=== PATIENT | female | born 1975 | race Caucasian/White ===

== ENCOUNTER 2021-06-27 12:13 | Emergency (ER) | payer OTHER, SELFPAY ==
[2021-06-27 12:23] VITALS: BP 147/103; PULSE 74; RESP 18; TEMP 36.9; O2SAT 100
--- NOTE | 2021-06-27 12:36 | ED.URI ---
HPI - URI/Sore Throat General Chief Complaint: Upper Respiratory Infection Stated Complaint: cough Time Seen by Provider: 06/27/21 12:36 Source: patient and RN notes reviewed Mode of arrival: ambulatory Limitations: no limitations History of Present Illness HPI Narrative: 44-year-old female with history of Graves' disease presents with concern for 1 week history of sinus congestion, pressure, pain, postnasal drainage, cough, headache. She reports history of chronic sinus problems for which she is seeing specialist. She reports she has been using DayQuil with little relief. She denies fever, body aches, chills, sweats. Has not been vaccinated for Covid, had a negative Covid test last week. MD elicited complaint: cough Related Data Home Medications Medication Instructions Recorded Confirmed methimazole 5 mg PO BID 06/27/21 06/27/21 propranolol 60 mg PO DAILY 06/27/21 06/27/21 Allergies Allergy/AdvReac Type Severity Reaction Status Date / Time No Known Allergies Allergy Verified 06/27/21 12:36 Review of Systems Review of Systems: CONSTITUTIONAL: Reports malaise. Denies chills, sweats, or fever. EYES: Denies visual changes, redness, or discharge. ENT: Reports rhinorrhea, congestion, sinus pain. Denies otalgia and sore throat. CARDIOVASCULAR: Denies chest pain, palpitations, or edema. RESPIRATORY: Reports cough. Denies dyspnea. GASTROINTESTINAL: Denies abdominal pain, nausea, vomiting, diarrhea SKIN: Denies rash or itching. MUSCULOSKELETAL: Denies myalgia. NEUROLOGIC: Reports headache. All systems reviewed & are unremarkable except as noted in HPI and below PMFSH Comments At time of signature, agree with nursing past medical, surgical, social and family history. There is no relevant family history pertinent to the presenting complaint Exam Narrative: GENERAL: Well-appearing, well-nourished, and in no acute distress. HEAD: Normocephalic EYES: PERRLA, conjunctivae clear ENT: Nares clear, turbinates mildly erythematous. Mucous membranes moist. TM pearly alfred with sharp light reflex bilaterally; no tragal tenderness. Oropharynx not erythematous without lesions. Tonsils not enlarged and without exudate, no drooling, no hoarseness, no trismus, uvula midline. NECK: Supple. No lymphadenopathy CHEST: Clear to auscultation, breath sounds equal. No wheezing, rhonchi, rales, or stridor. No respiratory distress, speaks in full sentences. HEART: Regular rate and rhythm. No murmur heard. SKIN: Warm, dry, no rash. NEURO: Alert and oriented x3. PSYCH: Normal mood and affect Course Course Emergency Course: Patient is aware of diagnosis, understands and agrees to treatment plan. Anticipatory guidance given. Patient agrees to follow-up as directed and is aware of reasons to seek care at the emergency department. Portions of this record may have been created with voice recognition software Vital Signs Vital signs: Vital Signs Temperature 98.4 F 06/27/21 12:23 Pulse Rate 74 06/27/21 12:23 Respiratory Rate 18 06/27/21 12:23 Blood Pressure 147/103 H 06/27/21 12:23 Pulse Oximetry 100 06/27/21 12:23 Temperature 98.4 F 06/27/21 12:23 Pulse Rate 74 06/27/21 12:23 Respiratory Rate 18 06/27/21 12:23 Blood Pressure 147/103 H 06/27/21 12:23 Pulse Oximetry 100 06/27/21 12:23 Reviewed. Patient has been instructed to follow up with her primary care provider within the next week regarding her elevated blood pressure today. MDM - URI/Sore Throat MDM Narrative Medical decision making narrative: Differential diagnosis considered: Martines virus, strep pharyngitis, allergic rhinitis, upper respiratory tract infection, sinusitis, rhinosinusitis, nasopharyngitis. viral pharyngitis, otitis media, otitis externa, pneumonia, bronchitis, viral cough syndrome, viral syndrome, and influenza. Exam findings show no acute concerns or changes; patient is non-toxic appearing and is in no distress. Patient is appropriate for outpa
== END 2021-06-27 12:50 | disposition home or self-care (01) ==
PROVIDERS: Emergency Provider Nurse Practitioner
DX: J01.90 Acute sinusitis, unspecified (principal); E05.00 Thyrotoxicosis with diffuse goiter without thyrotoxic crisis or storm
CPT/HCPCS: 99213; G0463

== ENCOUNTER 2021-08-31 15:40 | Emergency (ER) | payer OTHER, SELFPAY ==
[2021-08-31 15:46] VITALS: BP 174/91; PULSE 68; RESP 18; TEMP 36.9; O2SAT 100
--- NOTE | 2021-08-31 15:53 | ED.GENADULT ---
HPI - General Adult General Chief complaint: Back Pain/Injury Stated complaint: back pain Time Seen by Provider: 08/31/21 15:53 Source: patient Mode of arrival: ambulatory Limitations: no limitations History of Present Illness HPI narrative: 45-year-old female patient presents to the [facility] with complaints of lower back pain to the left side for the past 2 to 3 days. Patient states she does not remember any specific injury to her back but states that it does hurt with movement specifically when twisting to the left. Patient states she has been cleaning for the upcoming holiday. Patient states she did take 2 extra strength Tylenol one time today but did not help with the pain. Denies using any type of heat or any anti-inflammatories for the pain. Related Data Home Medications Medication Instructions Recorded Confirmed methimazole 5 mg PO BID 06/27/21 08/31/21 propranolol 60 mg PO DAILY 06/27/21 08/31/21 Allergies Allergy/AdvReac Type Severity Reaction Status Date / Time No Known Allergies Allergy Verified 08/31/21 15:49 Review of Systems Review of Systems: CONSTITUTIONAL: Denies fever, chills, or sweats. EYES: Denies visual changes, redness, or discharge. ENT: Denies rhinorrhea, congestion, sore throat, or otalgia. CARDIOVASCULAR: Denies chest pain, palpitations, or edema. RESPIRATORY: Denies cough or dyspnea. GASTROINTESTINAL: Denies abdominal pain, nausea, vomiting, or diarrhea. GENITOURINARY: Denies dysuria or hematuria. SKIN: Denies rash or itching. MUSCULOSKELETAL: Positive low right-sided back pain, denies joint pain, or myalgia. NEUROLOGIC: Denies headache, numbness, or weakness. PSYCHIATRIC: Denies anxiety or depression. [facility] Past Medical History Medical History (Updated 08/31/21 @ 16:07 by BEL Marquez) Anxiety Depression GERD (gastroesophageal reflux disease) Graves disease Hypertension Hyperthyroidism Hypothyroidism Pneumonia Pulmonary embolism Surgical History Surgical History (Updated 08/31/21 @ 15:56 by BEL Marquez) H/O tubal ligation History of appendectomy History of orthopedic surgery Bilateral carpal tunnel Comments At the time of my signature I agree with nursing past medical history, surgical, social, and family history. There is no relevant family history pertinent to the presenting complaint. Exam Narrative: GENERAL: Well-appearing, well-nourished, and in no acute distress. HEAD: Normocephalic, atraumatic. EYES: PERRLA and EOMI. ENT: Nares clear, no rhinorrhea or epistaxis. Mucous membranes moist. NECK: Supple. No lymphadenopathy CHEST: Clear to auscultation. No respiratory distress. HEART: Regular rate and rhythm. No murmur heard. Normal peripheral pulses. ABDOMEN: Soft, nontender, nondistended, normal active bowel sounds. EXTREMITIES: Normal range of motion. No edema. BACK: Patient is able to ambulated without assistance. Pt is seated on the chair in no obvouis distress. No surface trauma noted. muscle tenderness to Palpation noted to the L1 and 2. No spasm or mass. No step-offs or deformity noted to the cervical, thoracic or lumbar spine to firm Palpation at the midline. No CVA tenderness to percussion. No saddle anesthesia. ROM: able to stand erect. Normal flexion, pain with extension, pain with left-sided lateral bending and rotation without limitation or complaint of pain. SKIN: Warm, dry, no rash. NEURO: No focal deficits. Alert and oriented x3. Course Vital Signs Vital signs: Vital signs reviewed Medical Decision Making Differential Diagnosis Differential Diagnosis: Differential diagnosis: Acute musculoskeletal injury or exacerbation, neurological emergency, acute coronary syndrome, kidney stones, epidural abscess or hematoma,Cauda Equina Syndrome, herniation. Discussed with patient it looks like she most likely pulled or strained a muscle in her back causing her pain. Discussed with patient we will go ahead and give her some muscle relaxan
== END 2021-08-31 16:13 | disposition home or self-care (01) ==
PROVIDERS: Emergency Provider Nurse Practitioner Family; PCP Emergency Medicine
DX: S39.012A Strain of muscle, fascia and tendon of lower back, initial encounter (principal); X58.XXXA Exposure to other specified factors, initial encounter; K21.9 Gastro-esophageal reflux disease without esophagitis; I10 Essential (primary) hypertension; E05.00 Thyrotoxicosis with diffuse goiter without thyrotoxic crisis or storm; E03.9 Hypothyroidism, unspecified; E05.90 Thyrotoxicosis, unspecified without thyrotoxic crisis or storm; E11.9 Type 2 diabetes mellitus without complications
CPT/HCPCS: 99213; G0463

== ENCOUNTER 2022-10-16 16:20 | Emergency (ER) | payer OTHER, SELFPAY ==
--- NOTE | ~2022-10-16 | XR_ITS ---
EXAM: XR soft tissue neck DATE: 10/16/2022 17:00 HISTORY: swelling rt jaw. felt pop while chewing . COMPARISON: None available. FINDINGS: Normal mineralization. No fracture or dislocation. No lytic or blastic lesion. Multilevel moderate degenerative disc disease at C4-5 and C5-6. No erosion or periosteal change. Soft tissues wi thin normal limits. No prevertebral soft tissue swelling. Normal airway. No unexpected radiopaque for eign body. IMPRESSION: No acute soft tissue finding in the neck. Reviewed, dictated and finalized at location K. [employer]
--- NOTE | ~2022-10-16 | XR_ITS ---
EXAM: XR mandible min 4V DATE: 10/16/2022 17:00 HISTORY: pain swelling rt side jaw. felt pop when chewing. . COMPARISON: None available. FINDINGS: Normal mineralization. No fracture or dislocation. No lytic or blastic lesion. Orbits are intact and symmetric. Aerated spaces are clear. No erosion or periosteal change. Soft tissues within normal limits. IMPRESSION: No acute osseous finding in the mandible. Reviewed, dictated and finalized at location K. [employer]
[2022-10-16 16:27] VITALS: BP 154/90; PULSE 76; RESP 16; TEMP 36.6; O2SAT 100
--- NOTE | 2022-10-16 16:46 | ED.DENTAL ---
HPI - Dental/Oral General Chief complaint: Dental/Oral Stated complaint: right side facial pain Time Seen by Provider: 10/16/22 16:47 Source: patient Mode of arrival: ambulatory History of Present Illness HPI Narrative: 46-year-old female presenting for c/o right sided jaw pain for 5 days. Started after eating a piece of bread. Denies dental injury or trauma. Endorses swelling when eating and at times cannot close mouth all the way. Pain worse after eating or brushing teeth, rates 8/10. pain 5/10 at rest. Pain and swelling to the ulnar this job radiates up to the ear and into the neck and shoulder. History of TMJ issues, stating it has been several years, but used to have issues where the jaw would ?pop out of place and would have to pop it back into place. ? MD Complaint: tooth pain Related Data Home Medications Medication Instructions Recorded Confirmed methimazole 5 mg tablet 5 mg PO BID 06/27/21 08/31/21 propranolol 60 mg capsule,24 60 mg PO DAILY 06/27/21 08/31/21 hr,extended release Allergies Allergy/AdvReac Type Severity Reaction Status Date / Time No Known Allergies Allergy Verified 10/16/22 16:28 Review of Systems Review of Systems: CONSTITUTIONAL: Denies body aches, fever, chills ENT: Denies rhinorrhea, congestion, sore throat, or otalgia. CARDIOVASCULAR: Denies chest pain, palpitations RESPIRATORY: Denies cough or dyspnea. SKIN: Denies rash, itching, or wounds. MUSCULOSKELETAL: Denies myalgia. NEUROLOGIC: Denies headache, numbness, tingling, or weakness. [facility] Past Medical History Medical History Anxiety Depression GERD (gastroesophageal reflux disease) Graves disease Hypertension Hyperthyroidism Hypothyroidism Pneumonia Pulmonary embolism Surgical History Surgical History H/O tubal ligation History of appendectomy History of orthopedic surgery Bilateral carpal tunnel Comments At time of signature, I have reviewed and agree with nursing past medical, surgical, social and family history unless otherwise noted. Please see nursing chart for further information. There is no relevant family history pertinent to the presenting complaint Exam Narrative: GENERAL: Appears in pain; no acute distress. HEAD: Normocephalic, atraumatic. EYES: EOMI. No redness or drainage. Conjunctivae normal. ENT: Right lower mandible edge with mild swelling, no bruising or redness; tender with palpation. Minimally tender at TMJ. Able to open mouth, no dental fracture or gum swelling. Mucous membranes pink and moist. TMs normal bilaterally. Throat normal. Uvula midline. NECK: Normal AROM. No lymphadenopathy. CHEST: Clear to auscultation. HEART: Regular rate and rhythm. No murmur appreciated. SKIN: Warm, dry, no rash. Normal skin turgor. NEURO: No focal deficits. Course Course Emergency Course: Patient is aware of diagnosis, understands and agrees to treatment plan. Anticipatory guidance given. Patient agrees to follow-up as directed and is aware of reasons to seek care at the emergency department. Portions of this record may have been created with voice recognition software Level of Care: Express Care Visit Vital Signs Vital signs: Vital Signs Temperature 97.9 F 10/16/22 16:27 Pulse Rate 76 10/16/22 16:27 Respiratory Rate 16 10/16/22 16:27 Blood Pressure 154/90 H 10/16/22 16:27 Pulse Oximetry 100 10/16/22 16:27 Oxygen Delivery Room Air 10/16/22 16:27 Temperature 97.9 F 10/16/22 16:27 Pulse Rate 76 10/16/22 16:27 Respiratory Rate 16 10/16/22 16:27 Blood Pressure 154/90 H 10/16/22 16:27 Pulse Oximetry 100 10/16/22 16:27 Oxygen Delivery Room Air 10/16/22 16:27 MDM - Dental/Oral MDM Narrative Medical decision making narrative: Results of x-rays reviewed with patient. There are no focal signs of space occupying lesions that are
== END 2022-10-16 17:28 | disposition home or self-care (01) ==
PROVIDERS: Emergency Provider Nurse Practitioner Family; PCP Emergency Medicine
DX: R68.84 Jaw pain (principal); K21.9 Gastro-esophageal reflux disease without esophagitis; E05.00 Thyrotoxicosis with diffuse goiter without thyrotoxic crisis or storm; I10 Essential (primary) hypertension; E05.90 Thyrotoxicosis, unspecified without thyrotoxic crisis or storm; E03.9 Hypothyroidism, unspecified; Z86.711 Personal history of pulmonary embolism
CPT/HCPCS: 70110; 70360; 99213; G0463

== ENCOUNTER 2024-04-02 15:07 | Emergency (ER) | payer OTHER, SELFPAY ==
--- NOTE | ~2024-04-02 | XR_ITS ---
XR shoulder RT min 2V Ordering provider: Angela Chawla NP History: . rt lateral shoulder pain s/p fall 7 days ago moves well . Comparison: None. FINDINGS: BONES: No acute fracture or dislocation. Multiple healed ribs are noted on the right side. JOINT SPACES: The acromioclavicular joint is normal. The glenohumeral joint is normal. SOFT TISSUES: Normal. IMPRESSION: No acute osseous abnormality right shoulder. Consider MRI of the shoulder if there is concern for soft tissue internal derangement. Reviewed, dictated and finalized at location A. IMPRESSION: No acute osseous abnormality right shoulder. Consider MRI of the shoulder if there is concern for soft tissue internal deran audra.
[2024-04-02 15:23] VITALS: BP 140/79; PULSE 55; RESP 16; TEMP 36.7; O2SAT 99
--- NOTE | 2024-04-02 15:48 | ED.UPPEXIN ---
HPI - Extremity Injury (Upper) General Chief Complaint: Extremity Injury, Upper Stated Complaint: fell, right shoulder/neck pain Time Seen by Provider: 04/02/24 15:25 Source: patient Mode of arrival: ambulatory Limitations: no limitations History of Present Illness HPI narrative: 48-year-old female presents with complaint of pain to right shoulder. Patient states that she fell at work and landed on to right shoulder. States she was stepping off a stair and slipped in a wet puddle of water. Patient fell approximately 1 week ago. Had some tenderness and pain with movement of right shoulder but states over the past couple of days feels like pain is worse. All systems reviewed and negative except as noted above. Related Data Home Medications Medication Instructions Recorded Confirmed methimazole 5 mg tablet 5 mg PO BID 06/27/21 04/02/24 propranolol 60 mg capsule,24 60 mg PO DAILY 06/27/21 04/02/24 hr,extended release Allergies Allergy/AdvReac Type Severity Reaction Status Date / Time No Known Allergies Allergy Verified 04/02/24 15:28 Review of Systems Review of Systems: CONSTITUTIONAL: Denies fever, chills, or sweats. EYES: Denies visual changes, redness, or discharge. ENT: Denies rhinorrhea, congestion, sore throat, or otalgia. CARDIOVASCULAR: Denies chest pain, palpitations, or edema. RESPIRATORY: Denies cough or dyspnea. GASTROINTESTINAL: Denies abdominal pain, nausea, vomiting, or diarrhea. GENITOURINARY: Denies dysuria or hematuria. SKIN: Denies rash or itching. MUSCULOSKELETAL: Reports pain to right shoulder. NEUROLOGIC: Denies headache, numbness, or weakness. PSYCHIATRIC: Denies anxiety or depression. All other systems reviewed are negative, except as documented in HPI. [facility] Past Medical History Medical History Anxiety Depression GERD (gastroesophageal reflux disease) Graves disease Hypertension Hyperthyroidism Hypothyroidism Pneumonia Pulmonary embolism Surgical History Surgical History H/O tubal ligation History of appendectomy History of orthopedic surgery Bilateral carpal tunnel Comments At time of signature, agree with nursing past medical, surgical, social and family history. There is no relevant family history pertinent to the presenting complaint. Exam Narrative: GENERAL: This is a well-nourished, well-developed patient, in no apparent distress. HEAD: normocephalic, atraumatic. EYES: PERRL. Sclera clear/white. Vision is grossly intact. EARS: External ears normal NOSE: External nose normal NECK: Neck supple, non-tender without lymphadenopathy, masses or thyromegaly. CARDIOVASCULAR: Regular rate and rhythm without murmurs, gallops, or rubs. RESPIRATORY: Clear to auscultation. Breath sounds equal bilaterally. No wheezes, rales, or rhonchi. SKIN: warm, Dry, intact with no suspicious lesions or rash, good texture and turgor. NEURO: awake, alert, and oriented to person, place and time. There were no obvious focal neurologic abnormalities. EXTREMITIES: No tenderness on palpation of right shoulder. Range of motion intact. Distal neurovascularly intact. Negative drop-arm test. BACK: Nontender without deformity. Course Course Level of Care: Express Care Visit Vital Signs Vital signs: Vital Signs Temperature 36.7 C 04/02/24 15:23 Pulse Rate 55 L 04/02/24 15:23 Respiratory Rate 16 04/02/24 15:23 Blood Pressure 140/79 04/02/24 15:23 Pulse Oximetry 99 04/02/24 15:23 Oxygen Delivery Room Air 04/02/24 15:23 Temperature 36.7 C 04/02/24 15:23 Pulse Rate 55 L 04/02/24 15:23 Respiratory Rate 16 04/02/24 15:23 Blood Pressure 140/79 04/02/24 15:23 Pulse Oximetry 99 04/02/24 15:23 Oxygen Delivery Room Air 04/02/24 15:23 reviewed MDM - Extremity Injury (Upper) MDM Narrative Medical decision making n
== END 2024-04-02 16:01 | disposition home or self-care (01) ==
PROVIDERS: Emergency Provider Nurse Practitioner Family; PCP Nurse Practitioner Family
DX: S46.911A Strain of unspecified muscle, fascia and tendon at shoulder and upper arm level, right arm, initial encounter (principal); W01.0XXA Fall on same level from slipping, tripping and stumbling without subsequent striking against object, initial encounter; K21.9 Gastro-esophageal reflux disease without esophagitis; E05.00 Thyrotoxicosis with diffuse goiter without thyrotoxic crisis or storm; I10 Essential (primary) hypertension; E05.90 Thyrotoxicosis, unspecified without thyrotoxic crisis or storm; E03.9 Hypothyroidism, unspecified; Z86.711 Personal history of pulmonary embolism
CPT/HCPCS: 73030; 99213; G0463

== ENCOUNTER 2025-07-03 06:48 | Emergency (ER) | payer SELFPAY ==
[2025-07-03 06:49] VITALS: BP 151/66; PULSE 82; RESP 20; TEMP 36.4; O2SAT 99
[2025-07-03 06:58] VITALS: RESP 15
--- NOTE | 2025-07-03 06:59 | PC.NURSE ---
Pt presents to ED c/o feeling ill, states she feel sinus pressure, and like her face is swollen, denies headache. Pt unable to provided more information. Per pt she was taking feel free drink stopped taking it on Friday and feels like she is withdrawing from it.
--- OUTSIDE RECORDS SUMMARY | 2025-07-03 07:35 | XMS_ITS | Data Portability ---
Author Organization [place] [facility] [employer], Main Office Address [address] [place] [address] Care Team Providers Care Operator [employer] Name Role Phone GIGI PATTERSON Primary Care Provider Assessment No assessment recorded. Plan of Treatment Reminders Order Date Submit Date Provider Last Modified By Organization Details Last Modified Time Details Appointments Any 15 2024 03:45P M Deshawn Owens MD Not available Not available Not available Lab None recorded. Referral otolaryng ologist referral - Please call patient to schedule an appointme nt. Thank you. 2023 024 [email or web address] Eugenio Barahona MD, [address], [place], [address], 02/05/2024 08:53:27 counselin g referral - Please call patient to schedule an appointme nt. Thank you. 2023 024 [email or web address] Not available 02/23/2024 09:10:32 endocrino logy referral 2022 023 [email or web address] [facility], [address] [place], [address], 12/02/2023 14:57:34 counselin g referral 2022 023 [email or web address] [facility], [address], [place], [address], 01/15/2024 09:26:44 endocrino logy referral 2022 023 [email or web address] [facility], [address] [place], [address], 07/28/2023 07:57:42 Procedures None recorded. Surgeries None recorded. Imaging None recorded. Medication Orders sertralin e 50 mg tablet 2024 025 [facility]88442, [address] [place], [place], [id number], 05/30/2025 16:36:18 buspirone 10 mg tablet 2024 025 [facility] #29808, [address], [place], [id number], 05/30/2025 16:36:20 trazodone 100 mg tablet 2024 025 [facility], [address], [place], [id number], 05/30/2025 16:36:20 triamcino lone acetonide 40 mg/mL suspensio n for injection 2023 024 Not available 05/30/2025 16:22:35 trazodone 100 mg tablet 2023 [facility] [employer] #32845, [address], [place], [id number], 04/16/2024 11:25:09 methimazo le 5 mg tablet 2023 024 [facility] #47735, [address], [place], [id number], 01/08/2024 16:37:30 Patient TargetsNo targets recorded. Patient InstructionsNo instructions recorded. Reason for Referral Endocrinology Referral for H yperthyroidism Referring Physician: Gigi Patterson, Family Medicine, Encounter Date: 06/30/2023 Endocrinology Referral for H yperthyroidism Referring Physician: Gigi Patterson [facility], Encounter Date: 09/04/2023 Counseling Referral for Anxi ety Referring Physician: Gigi Patterson [facility], Encounter Date: 09/04/2023 Counseling Referral for Anxi ety Please call patient to schedule an appointment. Thank you. Referring Physician: Gigi Patterson [facility], Encounter Date: 01/08/2024 Box Attacher Referral fo r Maxillary sinus pain Please call patient to schedule an appointment. Thank you. Referring Physician: Gigi Patterson [facility], Encounter Date: 01/08/2024 Results Created Date Observation Date Name Description Value Unit Range Abnormal Flag Note LastModifiedBy Organization Detail LastModifiedTime 06/02/20 23 06/02/2023 CT, maxil lofac ial, w/o contr ast [facility] [address] [address] Patien t Name: MIGUEL DIXON Access ion #: [id number] Sex: F : 1975 9 Dictat ed By: Nacho polk Attend ing Physic vannessa: SOURAV MERRILL [facility] Physic vannessa: SOURAV MERRILL Exam Date: 2022 13:55 PM Exam Name: CT MAXILL OFACIA L WO Admitt ing Diagno sis(es ): CLINIC AL INFORM ATION: Sinus conges tion. TECHNI QUE: Axial CT images of the parana deepa sinuse s were obtain ed withou t contra st. Martines l and sagitt al reform atted images were obtain ed, review ed, and stored . One or more of the follow ing dose reduct ion techni ques were used: Automa selena exposu re contro l. Adjust ment of mA and/or kV accord ing to patien t size. CTDIvo l = 19.89 mGy DLP = 509.7 mGy-cm COMPAR FESTUS: None. FINDIN GS: The maxill jason sinuse s are clear. Ostiom eatal comple xes are patent . Ethmoi d air cells and fronta l sinuse s are clear. Spheno ethmoi janie recess es and fronta l recess es are patent . Spheno id sinus is clear. Sinus cazares are intact with no eviden ce of dehisc ence. Cribri form plate and lamina papyra cea are intact . No mass or polyp identi fied in the nasal cavity . Nasal turbin ates are within normal limits . Mild nasal septal deviat ion to the left with left-s ided septal spur. IMPRES SANDRA: Mild nasal septal deviat ion to the left with left-s ided septal spur. No signif icant parana deepa sinus diseas e. Electr onical ly Signed by: Nacho polk at 2022 17:59: 00 PM Page [address] (Imaging) [address] [place], [address], 06/03/2023 16:17:03 06/02/20 23 06/02/2023 CT, sinus es, w/o contr ast No observ ation record ed. [address] ([employer]) [address] [place], [address], 06/03/2023 16:16:50 06/03/20 23 06/02/2023 CT, sinus es, w/o contr ast No observ ation record ed. [address] [facility] [address] [place], [address], 06/03/2023 16:24:40 06/12/20 23 06/02/2023 CT, sinus es, w/o contr ast No observ ation record ed. [address] [facility] [address] [place], [address], 06/13/2023 09:40:44 04/02/20 24 04/02/2024 XR, shoul gabi, 2 or more view No observ ation record ed. [address], [place], [address], 04/12/2024 15:52:59 Result Notes None recorded. Problems Name Problem SNOMED Code Status Onset Date Resolution Date Notes Provider Name and Address Organization Details Recorded Time Hyperthyroidi sm 87013347 Active 2018 Not Available [facility] 3 04:53:15 Deviated nasal septum 129506341 Active 2021 Not Available [facility] 3 04:53:15 Recurrent sinusitis 404281568 Active 2021 Not Available [facility] 3 04:53:15 Alcohol dependence 33893253 Active 2022 [facility] [address], [place], [address] , [employer] 3 14:53:00 Maxillary sinus pain 074029798 Active 2022 [facility] [address], [place], [address] , [employer] 3 14:59:40 Insomnia 931734526 Active 2022 [facility] [address], [place], [address] , [employer] [facility] 3 15:03:34 Chronic sinusitis 78411031 Active 2022 Yecenia snyder [employer] [facility] 3 15:30:46 Chronic sinusitis 71776307 Active 2022 Sourav Ahumada MD [address], [place], [address] , [employer] [facility] 3 15:36:37 Seasonal allergy 358559542 Active 2023 [facility] [address], [place], [address] , [employer] [facility] 4 11:15:37 Chronic insomnia 132540281 Active 2024 Deshawn Owens MD [address], [place], [address] , [facility] [employer] [facility] 16:23:37 Chronic anxiety 273505822 Active 2024 Deshawn Owens MD [address], [place], [address] , [employer] 16:33:09 Problem Notes None recorded. Procedures Surgical History Date Name Laterality Status Provider Name and Address Organization Details Recorded Time 11/14/19 SEPTOPLASTY (SURG) completed Not Available [facility] 12/04/2022 05:07:05 Appendectomy completed [facility] 12/04/2022 04:43:50 Carpal tunnel completed Not Available [facility] 12/04/2022 04:43:50 Imaging Results None recorded. Procedure Notes None recorded. Medical Equipment None Reported. Allergies No known drug allergies Medications Name Sig Start Date Stop Date Status Note LastModified by Organization Details LastModified Time cyclobenzap rine 10 mg tablet 11/22 completed Not Available Not Available Not Available amoxicillin 500 mg capsule TAKE 1 CAPSULE BY MOUTH THREE TIMES DAILY 05/30 completed Not Available Not Available Not Available methocarbam ol 500 mg tablet TAKE 1 TABLET BY MOUTH EVERY 6 HOURS NEEDED FOR MUSCLE PAIN OR SPASM 05/30 completed Not Available Not Available Not Available bupropion HCl SR 150 mg tablet,12 hr sustained-r elease 09/21 completed Not Available Not Available Not Available cefuroxime axetil 250 mg tablet 02/15 completed Not Available Not Available Not Available nicotine 14 mg/24 hr daily transdermal patch 02/15 completed Not Available Not Available Not Available trazodone 50 mg tablet Take 0.5 tablets as needed by oral route at bedtime. 05/30 completed Not Available Not Available Not Available azithromyci n 250 mg tablet 02/15 completed Not Available Not Available Not Available hydrocodone 5 mg-acetamin ophen 325 mg tablet TAKE 1 TABLET BY MOUTH EVERY 4-6 HOURS NEEDED 05/30 completed Not Available Not Available Not Available famotidine 40 mg tablet 02/15 completed Not Available Not Available Not Available propranolol ER 60 mg capsule,24 hr,extended release TAKE 1 CAPSULE BY MOUTH DAILY active Not Available Not Available No t Available propranolol 60 mg tablet TK 1 T PO Q 12 H 01/15 completed Not Available Not Available Not Available peg-electro lyte solution 420 gram oral solution MIX AND DRINK DIRECTED BY OFFICE 09/04 completed Not Available Not Available Not Available triamcinolo ne acetonide 0.1 % topical cream 02/15 completed Not Available Not Available Not Available propranolol 10 mg tablet TAKE 1 TABLET BY MOUTH THREE TIMES DAILY BEFORE MEALS 01/15 completed Not Available Not Available Not Available alprazolam 0.25 mg tablet TK SS T PO TID PRF ANXIETY 02/15 completed Not Available Not Available Not Available trazodone 100 mg tablet TAKE 1 TABLET BY MOUTH EVERY DAY AT BEDTIME. 2024 active Not Available Not Available Not Avai lable triamcinolo ne acetonide 40 mg/mL suspension for injection Take 80 mg by injection route. 05/30 completed Not Available Not Available Not Available hydrocodone 7.5 mg-acetamin ophen 325 mg tablet TAKE 1 TABLET BY MOUTH EVERY 4 HOURS NEEDED 12/09 completed Not Available Not Available Not Available buspirone 10 mg tablet TAKE 1 TABLET BY MOUTH EVERY 12 HOURS NEEDED 2024 active Not Available Not Available Not Avai lable promethazin e 25 mg tablet TAKE 1/2 TABLET BY MOUTH EVERY 6 HOURS NEEDED FOR FOR NAUSEA 09/04 completed Not Available Not Available Not Available methimazole 5 mg tablet TAKE 1 TABLET BY MOUTH DAILY active Not Available Not Available No t Available sertraline 25 mg tablet TK 1 T PO D 01/15 completed Not Available Not Available Not Available Banophen 25 mg capsule 02/15 completed Not Available Not Available Not Available lisinopril 5 mg tablet active Not Available Not Available Not Available ibuprofen 600 mg tablet TAKE 1 TABLET BY MOUTH EVERY 6 HOURS NEEDED FOR PAIN 05/30 completed Not Available Not Available Not Available methylpredn isolone 4 mg tablets in a dose pack FOLLOW PACKAGE DIRECTION S 09/03 completed Not Available Not Available Not Available methimazole 10 mg tablet Take 1 tablet twice a day by oral route before meals for 30 days. 12/05 completed Not Available Not Available Not Available fluticasone propionate 50 mcg/actuati on nasal spray,suspe nsion 02/15 completed Not Available Not Available Not Available sertraline 50 mg tablet TAKE 1 TABLET BY MOUTH EVERY DAY IN THE MORNING 2024 active Not Available Not Available Not Avai lable naproxen 500 mg tablet 11/22 completed Not Available Not Available Not Available amoxicillin 875 mg-potassiu m clavulanate 125 mg tablet TAKE 1 TABLET BY MOUTH EVERY 12 HOURS FOR 10 DAYS 09/03 completed Not Available Not Available Not Available nicotine 7 mg/24 hr daily transdermal patch 02/15 completed Not Available Not Available Not Available escitalopra m 10 mg tablet TAKE 1 TABLET BY MOUTH EVERY DAY 05/22 completed Not Available Not Available Not Available cyclobenzap rine 5 mg tablet TAKE 1 TO 2 TABLETS BY MOUTH THREE TIMES DAILY NEEDED FOR MUSCLE SPASM 12/09 completed Not Available Not Available Not Available Eliquis 5 mg tablet TAKE 2 TS PO BID FOR 7 DAYS THEN 1 T PO BID FOR 21 DAYS 02/15 completed Not Available Not Available Not Available Virtussin AC 10 mg-100 mg/5 mL oral liquid TAKE 5 ML BY MOUTH EVERY 6 HOURS NEEDED FOR COUGH 09/03 completed Not Available Not Available Not Available Vitals Date Recorded Body height Body mass index (BMI) Body weight Body temperature Heart rate Oxygen saturation Oxygen saturation in Arterial blood by Pulse oximetry Systolic And Diastolic Provider Name and Address Organization Details Last Updated DateTime 4 160.02 cm 21.6 kg/m2 13223.2 7 g 96.7 [degF] 80 /min 98 % 98 % 140/84 mm[Hg] Brea Leslie RN [facility] 4 11:03:01 Date Recorded Body height Body mass index (BMI) Body weight Body temperature Heart rate Oxygen saturation Oxygen saturation in Arterial blood by Pulse oximetry Systolic And Diastolic Provider Name and Address Organization Details Last Updated DateTime 4 160.02 cm 22.3 kg/m2 07049.6 4 g 97.7 [degF] 44 /min 99 % 99 % 130/82 mm[Hg] Brea Leslie RN [facility] 4 11:08:34 Date Recorded Body height Body mass index (BMI) Body weight Body temperature Oxygen saturation Oxygen saturation in Arterial blood by Pulse oximetry Heart rate Systolic And Diastolic Provider Name and Address Organization Details Last Updated DateTime 5 160.02 cm 19.9 kg/m2 30587.1 5 g 97.4 [degF] 96 % 96 % 54 /min 144/84 mm[Hg] Yamileth Coronado RN [facility] 5 16:27:29 Date Recorded Body height Body mass index (BMI) Body weight Body temperature Oxygen saturation Oxygen saturation in Arterial blood by Pulse oximetry Heart rate Systolic And Diastolic Provider Name and Address Organization Details Last Updated DateTime 3 160.02 cm 21.8 kg/m2 97240.8 6 g 97.7 [degF] 98 % 98 % 70 /min 120/60 mm[Hg] Loree Petersen CMA [facility] [employer] [facility] 3 14:00:27 Date Recorded Body height Body mass index (BMI) Body weight Body temperature Oxygen saturation Oxygen saturation in Arterial blood by Pulse oximetry Heart rate Systolic And Diastolic Provider Name and Address Organization Details Last Updated DateTime 3 160.02 cm 22 kg/m2 40134.4 5 g 97.2 [degF] 98 % 98 % 66 /min 124/84 mm[Hg] Aye Das LPN [facility] 3 11:33:23 Social History Question Answer Notes LastModified by Organizat ion Details LastModified Time Tobacco Smoking Status Current Every Day Smoker Not Available [facility] 12/04/2022 04:42:01 What Is Your Level Of Caffeine Consumption? Occasional 1 Cup Coffee Daily 1/2 Can Of Soda/day- Pepsi [email or web address] Information not available 05/30/2025 How Much Tobacco Do You Chew? None [id number] Information not available 12/04/2022 In The 14 Days Before Symptom Onset, Have You Had Close Contact With A Laboratory-confir med COVID-19 While That Case Was Ill? No [id number] Information not available 12/04/2022 In The 14 Days Before Symptom Onset, Have You Had Close Contact With A Person Who Is Under Investigation For COVID-19 While That Person Was Ill? No [id number] Information not available 12/04/2022 Which Illicit Or Recreational Drugs Have You Used? Marijuana [id number] Information not available 12/04/2022 How Many Years Have You Used Illicit Or Recreational Drugs? 33 Information not available 05/30/2025 What Is Your Current Pack Years? [email or web address] Information not available 05/30/2025 At What Age Did You Start Smoking Tobacco? 16 [email or web address] Information not available 05/30/2025 How Much Tobacco Do You Smoke? 1 PPD [id number] Information not available 12/04/2022 How Many Years Have You Smoked Tobacco? 33 [email or web address] Information not available 05/30/2025 Have You Recently Traveled Abroad? No [id number] Information not available 12/04/2022 Have You Used IV Drugs? No [email or web address] Information not available 05/30/2025 Sex: Unknown Functional Status Question Answer Note LastModified by Organizat ion Details LastModified Time Do you use any illicit or recreational drugs? Yes [email or web address] Information not available 05/30/2025 Do you or have you ever used any other forms of tobacco or nicotine? No Information not available 05/30/2025 What is your level of alcohol consumption? Occasional [email or web address] Information not available 05/30/2025 Do you or have you ever used e-cigarettes or vape? Never used electronic cigarettes [id number] Information not available 12/04/2022 Mental Status None recorded. Family History Relationship Description Onset Age of this Age Resolved Age Notes LastModified by Organization Details LastModified Time Father Family history of malignant neoplasm [id number] Not available 12/04/2022 04:43:56 Mother Family history of malignant neoplasm [id number] Not available 12/04/2022 04:43:56 Mother Family history of Thyroid disorder [id number] Not available 12/04/2022 04:43:56 Medical History Condition Response MRSA N SLEEP APNEA N ALLERGIES/HAYFEVER N LUNG DISEASE/DISORDER N HISTORY OF DRUG ABUSE N INSOMNIA N COPD N RADIATION / CHEMOTHERAPY N HIGH CHOLESTEROL / HYPERLIPIDEMIA N HYPERTHYROIDISM Y BLOOD DISEASES N EAR OR HEARING PROBLEMS N HYPOTHYROIDISM N SHINGLES N DEPRESSION (INCLUDING POST ) N HAVE YOU BEEN HOSPITALIZED OR SEEN IN [facility] ER IN THE PAST YEAR ? Y STROKE/TIA N ULCERS N OBESITY N ANEURYSM N HISTORY WITH COMPLICATIONS WITH ANESTHES IA ? N USE OF BLOOD THINNERS N NO SIGNIFICANT PAST MEDICAL HISTORY N DIABETES, TYPE N PARATHYROID DISEASE N ENT N SEASONAL ALLERGIES N HEARTBURN / REFLUX N HEPATITIS / LIVER DISEASE N SLEEP DISORDER N SEIZURES/EPILEPSY N HEADACHES/MIGRAINES N CHF N PACEMAKER N DIZZINESS N HEART DISEASE/HEART PROBLEMS N AIDS/HIV N FRACTURES N HYPERTENSION N CANCER: SPECIFY N TOURETTE'S N BLOOD TRANSFUSION N ANESTHESIA COMPLICATIONS N ANEMIA/BLOOD DISORDER N CHRONIC EAR INFECTIONS N TUBERCULOSIS N Gynecological History Statement/Question Response Abnormal Pap N Dislike of Light during Menstrual Headac he N Do you get headaches during your period N Do your menstrual headaches get severe N Menses Monthly N Current Control Method None Breast Problems no Discharge no Obstetrics History GPAL:G 0 P 0 0 0 0 Past Encounters Encounter ID Performer Location Encounter Start Date Encounter Closed Date Diagnosis/Indication Diagnosis SNOMED-CT Code Diagnosis ICD10 Code Diagnosis IMO Codes Diagnosis Note [id number] Miguel iVllanueva MD [facility] [address] [place] [address] 01/15/2021 00:00:00 01/15/2021 19:52:18 [id number] Miguel Villanueva MD [facility] [address] [place] [address] 09/03/2021 00:00:00 09/03/2021 16:18:52 [id number] [facility] [place] [address] [place] [address] 09/13/2021 00:00:00 09/13/2021 14:44:53 [id number] Sourav Ahumada MD [facility] [place] [address] [place] [address] 10/18/2021 00:00:00 10/18/2021 11:37:02 [id number] Sourav Ahumada MD [facility] [place] [address] [place] [address] 11/22/2021 00:00:00 11/22/2021 11:59:37 [id number] [facility] [place] [address] [place] [address] 05/06/2022 00:00:00 05/06/2022 13:25:44 [id number] Miguel Villanueva MD [facility] [place] [address] [place] [address] 12/09/2022 15:21:39 12/09/2022 16:00:59 Hyperthyroidism 52696236 E05.90 TSH and FT4 in subclinica l range with positive TSI. Would recommend patient drop her methimazol e down to 5 mg every other day. Patient doing well overall overall with no Continue propranolo l 60 mg daily. Will continue on propranolo l for now as she has normal heart rate. Will plan to repeat labs in 10-14 days to continue titration and again if thyroid antibodies are elevated will discuss [facility] curative treatment at return visit. Patient advised to go to ER if she experience s any confusion, fever over 101.0, heart rate over 130 bpm or significan t tremors/wo rsening diarrhea or decline in health. She voiced understand ing. [id number] ELIANA Spencer [facility] Primary Care [address] [place] [address] 04/28/2023 14:13:53 04/28/2023 15:17:51 Anxiety 74234355 F41.9 Will send to counselor for alcohol dependence . Takes daily vitamin Alcohol dependence 79243 003 F10.20 Will send to counselor for alcohol dependence . Takes daily vitamin Adult heal th examination 750239976 Z00.00 Z00.01 Maxillary sinus pain [address] Ahumada for this in the past. symptoms unresolved after surgery Screening for malignant neoplasm of colon 410570478 Z12.11 Insomnia 695346842 G47.0 0 Used to take trazodone in the past [id number] Sourav Ahumada MD [facility] ENT [place] [address] [place] [address] 05/22/2023 15:10:28 05/22/2023 15:47:08 Maxillary sinus pain 165519382 R51.9 Chronic sinusitis 352003 00 J32.9 [id number] Tari Fernández MD [facility] Care [address] [place] [address] 06/30/2023 13:54:26 06/30/2023 14:22:04 Anxiety 54856872 F41.9 Took 1 day of escitalopr amPlans to stay off of escitalopr amhas not followed up with jeanette for counseling up to this point Maxillary sinus pain [address] scans performed per ENTstates she is always clogged, ears clogged and won't clearnext appt with ENT 07/03discus sed use of OTC cetirizine and nasal decongesta nt Screening for malignant neoplasm of colon 322841778 Z12.11 Has has 2 failed colonoscop ies-biopsy performed on the last oneEGD 06/23-resul ts unknownPla ns to do barium nema enema in the near futureNext f/u is 07/14 to discuss biopsy Hyperthyroidism 93852534 E05.90 requests new referral due to Dr. Cespedes leaving [id number] Tari Fernández MD [facility] Care [address] [place] [address] 09/04/2023 11:27:08 09/04/2023 12:28:50 Hyperthyroidism 83682158 E05.90 -pt has not f/u with endo yet d/t no-referra l updated and pt given informatio n Maxillary sinus pain 301 746878 R51.9 -pain/asmita estion continues- takes cetirizine as needed, has not tried using the nasal decongesta nt-encoura ged to try taking OTC sudafed Screening for malignant neoplasm of colon 370259938 Z12.11 -biopsy performed, no further treatment necessary- CT was supposed to be performed but her visit had to be reschedule d-pt to continue trying to get into contact with GI Anxiety 10422902 F41.9 -tried to follow up with jeanette for counseling but has had no luck d/t communicat ion issues-ref erral updated and pt plans to f/u [id number] Tari Fernández MD [facility] Primary Care [facility] [address] [facility] [address] [place] [address] 01/08/2024 10:57:44 01/08/2024 11:21:13 Hyperthyroidism 92681092 E05.90 -chronic, stable-she has an appt with endocrinol ogy on March 15-refil l methimazol e Anxiety 44194209 F41.9 -pt unable to get into [place] for appt d/t scheduling issues-new referral generated Maxillary sinus pain 301 557332 R51.9 -notes continued sinus pain-has f/u with ENT, CT performed, no abnormalit ies noted-caus es pain/itchi ng to thought-dailey s tried using nasonex, cetirizine -has not tried using the nasal decongesta nt, encouraged trying otc sudafed-ne w referral for ENT given [id number] ELIANA Spencer [facility] Primary Care [address] [place] [address] 04/16/2024 10:59:18 04/16/2024 11:40:07 Hyperthyroidism 33711483 E05.90 has f/u with endocrinol ogynow taking methimazol e 5mg dailywill continue to f/u with Endo Seasonal allergy 6980766 04 J30.2 Insomnia 652076081 G47.0 0 Used to take trazodone in the pastcurren tly taking trazodone 100mg, sending refillenco uraged to add on otc melatonin [id number] Deshawn Owens MD [facility] [address] [place] [address] 05/30/2025 16:16:10 05/30/2025 16:43:58 Chronic insomnia [id number] F51.04 [id number] Hyperthyroidism 39206334 E05.90 Cont f/u with Endo at [place] as per schedule. Chronic anxiety 92296338 9 F41.9 [id number] Health Concerns Section Related Observation LastModified by Organization Detai ls LastModified Time None Recorded Concern Status LastModified by Organization Details LastModified Time None Recorded Advance Directives Directive None Recorded Payers Insurance Date Sequence Insurance Name Policy Number Policy Alaniz Covered Member ID Alaniz Member ID Guarantor Name 05/30/2025 1 [facility] ON OR AFTER 04/05/21 (MEDICAID REPLACEMENT - HMO) Miguel Beauchamp [id number] Miguel Beauchamp 05/30/2025 1 *SELF PAY* Me naeem Beauchamp Notes Date Note Type Note Provider Name and Address Organization Details Recorded Time 06/30/2023 text/html Pt is here to 1 month f/u Gigi Royalaron COUNTERPERSON-C [address], [place], [address], [place] 06/30/2023 16:26:16 09/04/2023 text/html Pt is here to f/u for Gigi Royalaron COUNTERPERSON-C [address], [address], [place], [address], [place] 09/04/2023 12:25:27 01/08/2024 text/html pt is here for f/u Gigi Royalaron COUNTERPERSON-C [address], [address], [place], [address], [place] 01/08/2024 16:35:08 04/16/2024 text/html pt is here for 3 month f/u Gigi Royald COUNTERPERSON-C [address], [place], [address], [place] 04/16/2024 11:26:45 05/30/2025 text/html New pt visit. Pt was seeing PCP at [place] in the past. C/o chronic anxiety for last few yrs. Denies any mood swings/SI/HI. C/o chronic insomnia and is doing well with Trazodone. Pt has hyperthyroidism and she is f/u with Endo at [place] and she is on meds by them. Pt doesn't have any insurance yet. So she doesn't want to do any testing. Denies any alcohol concerns. Denies any BP concerns. Deshawn Owens MD [address], [address], [place], [address], [place] [facility] 05/30/2025 17:25:27 OBGyn Episode No OBEpisode recorded.
--- OUTSIDE RECORDS SUMMARY | 2025-07-03 07:35 | XMS_ITS | Clinical Summary ---
Author Organization [facility] Address [address] [place] [address] Care Team Providers Care Sales Consulting Director Name Role Phone Geovanni Arevalo MD Primary Care Provider Source Comments [facility],non-owned Affiliates and Associated Physician Practices is amultiple site organization consisting of ambulatory clinics and hospital sitesin [place], [place], [place]. This disclosure is being madepursuant to the Care Everywhere program and may not contain all information available regarding this patient. Last updated [email or web address] [facility] Allergies Active Allergy Reactions Criticality Noted Date Comments Lidocaine Rash Medium 05/25/2018 Medications * Be aware that medications may not be up to date on this document. Alwaysverify current medications with the patient. acetaminophen (TYLENOL) 500 MG tablet Take 2 tablets by mouth every 6 hours as needed for Pain Maximum allowable Acetaminophen amount = 4 Grams (4000 mg) / 24 hours. 40 tablet 8 Active naproxen (NAPROSYN) 500 MG tablet Take 1 tablet by mouth 2 times daily as needed for Pain 20 tablet 8 Active methIMAzole (TAPAZOLE) 10 MG tablet Take 10 mg by mouth 3 times daily 8 Active propranolol (INDERAL) 10 MG tablet Take 10 mg by mouth 3 times daily Active sertraline (ZOLOFT) 25 MG tablet Take 25 mg by mouth once daily 0 Active Active Problems No known active problems Social History Tobacco Use Types Packs/Day Years Used Date Smoking Tobacco: Every Day Cigarettes Smokeless Tobacco: Never Alcohol Use Standard Drinks/Week Comments Yes 0 (1 standard drink = 0.6 oz pur e alcohol) occassional Comments No Sex and Gender Information Value Date Recorded Sex Assigned at Not on file Legal Sex Female 2:15 PM CDT Gender Identity Not on file Sexual Orientation Not on file Last Filed Vital Signs Vital Sign Reading Time Taken Comments Blood Pressure 157/90 12/24/2019 2:13 PM CDT Pulse 57 12/24/2019 2:13 PM CDT Temperature 36.7 C (98 F) 12/24/2019 2:13 PM CDT Respiratory Rate 16 05/25/2018 3:38 PM CDT Oxygen Saturation 96% 05/25/2018 8:15 PM CDT Inhaled Oxygen Concentration - - Weight 53.5 kg (118 lb) 12/24/2019 2:13 PM CDT Height 160 cm (5' 3) 12/24/2019 2:13 PM CDT Body Mass Index 20.9 12/24/2019 2:13 PM CDT Plan of Treatment Health Maintenance Due Date Last Done Comments COLOGUARD (AGES 45-75) - COL ON CA SCREENING 1977 COLON MONITORING 1977 COLONOSCOPY - COLON CA SCREENING 1977 CT COLONOGRAPHY - COLON CA SCREENING 1977 Colorectal Cancer Screening 1977 FIT - COLON CA SCREENING 1977 FLEX SIG - COLON CA SCREENING 1977 LIPID TESTING 1977 MAMMOGRAM 1977 DTAP/TDAP/TD VACCINES (1 - Tdap) 1996 HEPATITIS B VACCINE (1 of 3 - 19+ 3-dose series) 1996 PNEUMOCOCCAL VACCINE (1 of 2 - PCV) 1996 DEPRESSION SCREENING 10/06/2024 COVID-19 VACCINE (1 - 2023-2 5 season) 2025 INFLUENZA VACCINE (#1) 2025 ZOSTER VACCINE (1 of 2) 12/08/2027 HEPATITIS C SCREENING Completed 05/25/2018 HIV SCREENING Completed 05/25/2018 HIB VACCINE Aged Out No longer eligi ble based on patient's age to complete this topic HPV VACCINE Aged Out No longer eligi ble based on patient's age to complete this topic MENINGOCOCCAL (Group B) VACC INE SHARED DECISION-MAKING Aged Out No longer eligibl e based on patient's age to complete this topic MENINGOCOCCAL GROUPS A/C/Y/W VACCINE Aged Out No longer eligible b ased on patient's age to complete this topic Procedures Procedure Name Priority Date/Time Associated Diagnosis Comments HEPATITIS C AB SCREEN RFLX NAAT QUANT STAT 05/25/2018 5:50 PM CDT HIV-1 HIV-2 ANTIGEN/ANTIBODY STAT 05/25/2018 5:50 PM CDT from Last 3 Months or Most Recently Relevant to Health Maintenance Results * HIV-1 HIV-2 ANTIGEN/ANTIBODY (05/25/2018 5:50 PM CDT) HIV Antigen/Antibod y 1 & 2 Non-reacti ve Non-react sobeida 05/25/2018 6:49 PM CDT [facility] Comment: Neither HIV-1 p24 Antigen nor HIV-1/HIV-2 Antibodies are detected. Blood BLOOD SPECIMEN / Unknown Venipuncture / Unknown 05/25/2018 5:50 PM CDT 05/25/2018 6:05 PM CDT us Lindsey Best MD LAB - HEMATOLOGY ORDERABLES Final Result [address] [phone] * HEPATITIS C AB SCREEN RFLX NAAT QUANT (05/25/2018 5:50 PM CDT) Hepatitis C Antibody Non-react sobeida Non-reac tive 05/25/2018 6:53 PM CDT [facility] Comment: Hepatitis C Antibody screen indicates no serologic evidence of past or current infection with Hepatitis C Virus. Patients with unexplained liver disease who are immunocompromised or suspected of having acute Hepatitis C infection may benefit from Nucleic Acid Test (RONALD) for Hepatitis C Viral RNA to confirm Hepatitis C status. Blood BLOOD SPECIMEN / Unknown Venipuncture / Unknown 05/25/2018 5:50 PM CDT 05/25/2018 6:05 PM CDT us Lindsey Best MD LAB - CHEMISTRY ORDERABLES F inal Result [facility] [address] [place] [address], [facility] [phone] from Last 3 Months or Most Recently Relevant to Health Maintenance Insurance [facility] Care Teams Sales Consulting Director Relationship Specialty Start Date End Date Geovanni Arevalo MD [address] [place] [address] [address] [place] [address] PCP - General Family Medicine 05/25/18
--- OUTSIDE RECORDS SUMMARY | 2025-07-03 07:35 | XMS_ITS | Clinical Summary ---
Author Organization [facility] Address [address] [place] [address] Phone Care Team Providers Care Emerging Technologies Director Name Role Phone Vic Hardwick MD Unavailable Tyler Patterson APRN, HOUSING CASE MANAGER Primary Care Provider Allergies Active Allergy Reactions Criticality Noted Date Comments Lidocaine Rash Medium 05/25/2018 Medications traZODone (DESYREL) 50 MG Tablet TAKE 1/2 TABLET BY MOUTH AT BEDTIME NEEDED 4 Active methIMAzole (TAPAZOLE) 5 MG Tablet TAKE 1 TABLET BY MOUTH DAILY 90 Tablet 5 Active propranolol (INDERAL LA) 60 MG CAPSULE SR 24 HR Take 1 Capsule by mouth daily. 90 Capsule 5 Active methIMAzole (TAPAZOLE) 5 MG Tablet Take 1 Tablet by mouth daily. 90 Tablet 5 Active Additional Information Patient not taking.Reported on 05/09/2025 propranolol (INDERAL LA) 60 MG CAPSULE SR 24 HR Take 1 Capsule by mouth daily. 90 Capsule 5 Active Additional Information Patient not taking.Reported on 05/09/2025 Encounters Date Type Department Care Team Description 05/09/2025 3:45 PM CDT Office Visit [facility] Endocrinology - [place] [address] [place] [address] Vic Hardwick MD Hyperthyroidism (Primary Dx); Elevated liver enzymes; Tobacco use Discharge Disposition: Discharged to home or Selfcare 05/09/2025 Travel 05/05/2025 Results Follow-Up [facility]ocr[facility]ology - [place] [address] [place] [address] Vic Hardwick MD THYROID STIMULATING HORMONE (TSH), THYROXINE (T4) FREE, CMP (COMPREHENSIVE METABOLIC PANEL) 04/25/2025 MyChart RX Renewal [facility] [address] [place] [address] Vic Hardwick MD Medication Renewal Reviewed 04/25/2025 Travel from Last 3 Months Social History Tobacco Use Types Packs/Day Years Used Date Smoking Tobacco: Every Day Cigarettes 1 33.7 Started: 1991 Smokeless Tobacco: Never Tobacco Cessation:Ready to Q uit: Not Asked; Counseling Given: Not Answered Alcohol Use Standard Drinks/Week Comments Not Currently 3 (1 standard drink = 0.6 oz pur e alcohol) Sexually Active Control Partners Comments Yes Male Comments Unknown Sex and Gender Information Value Date Recorded Sex Assigned at Not on file Legal Sex Female 3:03 PM CDT Gender Identity Not on file Sexual Orientation Not on file Last Filed Vital Signs Vital Sign Reading Time Taken Comments Blood Pressure 132/72 05/09/2025 3:41 PM CDT Pulse 62 05/09/2025 3:41 PM CDT Temperature 36.4 C (97.6 F) 05/09/2025 3:41 PM CDT Respiratory Rate 22 05/09/2025 3:41 PM CDT Oxygen Saturation 99% 05/09/2025 3:41 PM CDT Inhaled Oxygen Concentration - - Weight 51.6 kg (113 lb 12.8 oz) 05/09/2025 3:41 PM CDT Height 160 cm (5' 3) 11/15/2024 1:45 PM TECHNICAL DIRECTOR Body Mass Index 20.16 11/15/2024 1:45 PM TECHNICAL DIRECTOR Plan of Treatment Upcoming Encounters Date Type Department Care Team (Late st Contact Info) Description 08/15/2025 3:30 PM TECHNICAL DIRECTOR Office Visit [facility] [address] [place] [address] Vic Hardwick MD [address] [address] Health Maintenance Due Date Last Done Comments Mammogram 1977 TdaP Immunization 1977 Hepatitis B Immunization (1 of 3 - 19+ 3-dose series) 1996 Pneumococcal Immunization Co mbined (1 of 2 - PCV) 1996 Pap Smear 1998 Cervical Cancer Screening (CCS) 12/08/2007 HPV/Cotest 12/08/2007 Discussion re Starting/Frequ ency of Mammograms 2017 Cologuard 2022 Colonoscopy 2022 Colorectal Cancer Screening 2022 Immunochemical Fecal Occult Blood 2022 Influenza Immunization (#1) 2025 SARS-COV-2 Immunization (1 - season) 2025 Respiratory Syncytial Virus (RSV) Immunization (Adult) (1 - 1-dose 75+ series) 2052 Hepatitis C Virus (HCV) Screening Completed 018 Human Papillomavirus (HPV) Immunization Aged Out No longer eligible b ased on patient's age to complete this topic Meningococcal Immunization (ACWY) Aged Out No longer eligible based on patient's age to complete this topic Rotavirus Immunization Aged Out No lo nger eligible based on patient's age to complete this topic Procedures Procedure Name Priority Date/Time Associated Diagnosis Comments CMP (COMPREHENSIVE METABOLIC PANEL) Routine 04/25/2025 2:50 PM CDT Hyperthyroidism THYROXINE (T4) FREE Routine 04/25/2025 2 :50 PM CDT Hyperthyroidism THYROID STIMULATING HORMONE (TSH) Routine 04/25/2025 2:50 PM CDT Hyperthyroidism from Last 3 Months Results * THYROXINE (T4) FREE (04/25/2025 2:50 PM CDT) T4 FREE 1.1 0.7 - 1.9 ng/dL 04/25/2025 3:55 PM CDT [facility] Blood Venipuncture / Unknown 04/25/2025 2:50 PM CDT 04/25/2025 3:03 PM CDT us Vic Hardwick MD CHEMISTRY ORDERABLES Final Resul t Performing Organization Address City/[facility]/ZIP Co de Phone Number [facility] [address] [place] [address] * THYROID STIMULATING HORMONE (TSH) (04/25/2025 2:50 PM CDT) TSH 0.683 0.300 - 5.000 mIU/L 04/25/2025 3:55 PM CDT [facility] Blood Venipuncture / Unknown 04/25/2025 2:50 PM CDT 04/25/2025 3:03 PM CDT us Vic Hardwick MD CHEMISTRY ORDERABLES Final Resul t Performing Organization Address City/[facility] Co de Phone Number [facility] [address] [place] [address] * (ABNORMAL) CMP (COMPREHENSIVE METABOLIC PANEL) (04/25/2025 2:50 PM CDT) SODIUM 139 136 - 145 mmol/L 04/25/2025 3:27 PM CDT [facility] POTASSIUM 3.9 3.5 - 5.1 mmol/L 04/25/2025 3:27 PM CDT [facility] CHLORIDE 108(H) 98 - 107 mmol/L 04/25/2025 3:27 PM CDT [facility] CO2, VENOUS 25 22 - 30 mmol/L 04/25/2025 3:27 PM CDT [facility] ANION GAP 9.9 <18.0 mmol/L 04/25/2025 3:27 PM CDT [facility] GLUCOSE 102(H) 70 - 99 mg/dL 04/25/2025 3:27 PM CDT [facility] BUN 8 5 - 18 mg/dL 04/25/2025 3:27 PM CDT [facility] CREATININE, BLOOD 0.68 0.60 - 1.00 mg/dL 04/25/2025 3:27 PM T [facility] BUN/CREATININE RATIO 12 12 - 20 ratio 04/25/2025 3:27 PM T [facility] TOTAL PROTEIN 7.3 6.0 - 8.0 g/dL 04/25/2025 3:27 PM CDT [facility] ALBUMIN 3.9 3.5 - 5.0 g/dL 04/25/2025 3:[address] [facility] A/G RATIO 1.1 1.0 - 2.2 04/25/2025 3:27 PM T [facility] CALCIUM 8.9 8.7 - 10.5 mg/dL 04/25/2025 3:27 PM T [facility] T BILI 0.5 0.2 - 1.2 mg/dL 04/25/2025 3:27 PM T [facility] SGOT (AST) 58(H) <43 U/L 04/25/2025 3:[address] [facility] SGPT (ALT) 63(H) <56 U/L 04/25/2025 3:[address] [facility] ALKALINE PHOSPHATASE 91 40 - 150 U/L 04/25/2025 3:[address] [facility] IS THE PATIENT REQUIRED TO BE FASTING? No 04/25/2025 3:27 PM T [facility] GFR, ESTIMATED >60 >=60 04/25/2025 3:[address] [facility] Comment: Creatinine Clearance is the preferred criteria for selecting drug dose adjustments in renally impaired patients. The GFR is provided as additional pertinent clinical information. GFR is reported in mL/min/1.73 sq m. Calculation based on the Chronic Kidney Disease Epidemiology Collaboration (CKD- EPI) equation refit without adjustment for race. GFR, EST. >60 >=60 025 3:27 PM CDT [facility] GFR, EST. NONAFRICAN >60 >=60 04/25/2025 3:27 PM CDT [facility] Blood Venipuncture / Unknown 04/25/2025 2:50 PM CDT 04/25/2025 3:03 PM CDT us Vic Hardwick MD CHEMISTRY ORDERABLES Final Resul t [facility] [address] [place] [address] from Last 3 Months Care Teams Emerging Technologies Director Relationship Specialty Start Date End Date Tyler Patterson, INSPECTOR HOT [employer]GINGS, HOUSING CASE MANAGER [address] [place] [address] [place] [address] PCP - General Primary Care 03/05/24 Vic Hardwick MD [address] [address] [address] [address] Consulting Physician Endocrinology 03/05/24
[2025-07-03] MEDS: SODIUM CHLORIDE 0.9% IV 1,000 ML 999 ML IV CONT (07:53)
[2025-07-03] MEDS: ONDANSETRON INJ 4 MG/2 ML VIAL IV PUSH (07:54)
[2025-07-03 07:55] LABS: Hematocrit 42.0 % (37.0-47.0); Hemoglobin 14.5 g/dL (12.0-15.0); Immature Granulocyte Percent A 0.3 % (0-0.5); Lymphocytes Absolute Auto 2.83 K/mm3 (0.9-3.2); Mean Corpuscular HGB Conc 34.5 g/dl (32-36); Mean Corpuscular Hemoglobin 31.9 pg (26-34); Mean Corpuscular Volume 92.3 fl (80-100); Nucleated Red Blood Cells Absolute Auto 0.000 K/mm3 (0.0-0.012); Nucleated Red Blood Cells Perc 0.0 % (0.0-0.2); Platelet Count Result 211 k/mm3 (150-375); Red Blood Count 4.55 M/mm3 (4.2-5.4); White Blood Count 11.8 K/mm3 (4.5-10.0)
[2025-07-03 08:09] LABS: Alanine Aminotransferase 26 U/L (6-35); Albumin Level 3.7 g/dL (3.5-5.1); Alkaline Phosphatase 106 U/L (38-126); Anion Gap 5 mmol/L (4-12); Aspartate Amino Transferase 52 U/L (14-36); Bilirubin,Total 0.6 mg/dL (0.2-1.3); Blood Urea Nitrogen 17 mg/dL (7-17); Calcium 8.5 mg/dL (8.4-10.2); Carbon Dioxide 23 mmol/L (22-30); Chloride 109 mmol/L (98-107); Estimated CRCL calculation 83 ml/min; Estimated Glomerular Filt Rate > 60; Glucose 101 mg/dL (65-110); Lipase 508 U/L (23-300); Potassium 3.4 mmol/L (3.4-5.0); Sodium 137 mmol/L (137-145); Total Protein 7.2 g/dL (6.3-8.2)
[2025-07-03 08:32] LABS: Influenza A QL RT-PCR Negative (Negative); Influenza B QL RT-PCR Negative (Negative); RSV RNA, RT-PCR Negative (Negative); SARS-CoV-2 RNA PCR Negative (Negative)
[2025-07-03 09:05] VITALS: BP 141/89; PULSE 69; RESP 15; O2SAT 100
--- NOTE | 2025-07-03 09:05 | ED_ITS ---
HPI - General Adult General Chief complaint: Unspecified Stated complaint: I have been feeling sick, head cold? Time Seen by Provider: 07/03/25 07:26 History of Present Illness HPI narrative: Patient is a 49-year-old female who presents ER with multiple complaints. She has been having some sinus congestion and sore throat over last 10 days. She also developed diarrhea over last few days. No abdominal pain. She thinks she may be withdrawing from kratom. No fevers or chills. No chest pain or chest pressure. No exertional dyspnea. Also reports mild toothache on the right side upper jaw. No facial swelling. Related Data Home Medications ?Medication ?Instructions ?Recorded ?Confirmed ?Last Taken ?Type methimazole 5 mg tablet 5 mg PO BID 06/27/21 4 Unknown History propranolol 60 mg capsule,24 60 mg PO DAILY 06/27/21 0 04/02/24 Unknown History hr,extended release Allergies Allergy/AdvReac Type Severity Reaction Status Date / Time No Known Allergies Allergy Verified 04/02/24 15:28 Review of Systems 2 Review of Systems: All systems reviewed & are unremarkable except as noted in HPI and below Constitutional: Constitutional: Reports no additional constitutional complaints ENT: Reports system reviewed and no additional complaints, except as documented Cardiovascular: Cardiovascular: Reports no additional cardiovascular complaints Respiratory: Respiratory: Reports no additional respiratory complaints Gastrointestinal: Gastrointestinal: Reports no additional gastrointestinal complaints Musculoskeletal: Musculoskeletal: Reports no additional musculoskeletal complaints PMFSH Past Medical History Medical History Anxiety Depression GERD (gastroesophageal reflux disease) Graves disease Hypertension Hyperthyroidism Hypothyroidism Pneumonia Pulmonary embolism Surgical History Surgical History H/O tubal ligation History of appendectomy History of orthopedic surgery Bilateral carpal tunnel Exam 2 Narrative: GENERAL: Well-appearing, well-nourished, and in no acute distress. HEAD: Normocephalic, atraumatic. ENT: Mucous membranes moist. No facial swelling. Tender at tooth 3. CHEST: Clear to auscultation. No respiratory distress. HEART: Regular rate and rhythm. Normal peripheral pulses. ABDOMEN: Soft, nontender, nondistended. EXTREMITIES: Normal range of motion. No edema. SKIN: Warm, dry, no rash. NEURO: Alert and oriented x3. PSYCH: Normal mood and affect. Course Course Emergency Course: Informed of results. Appropriate for discharge home with oral antibiotic for dental infection. Patient otherwise felt to have URI. Vital Signs Vital signs: Vital Signs Temperature 97.6 F 07/03/25 06:49 Pulse Rate 82 07/03/25 06:49 Respiratory Rate 20 07/03/25 06:49 Blood Pressure 151/66 H 07/03/25 06:49 Pulse Oximetry 99 07/03/25 06:49 Oxygen Delivery Room Air 07/03/25 06:49 Temperature 97.6 F 07/03/25 06:49 Pulse Rate 69 07/03/25 09:05 Respiratory Rate 15 07/03/25 09:05 Blood Pressure 141/89 H 07/03/25 09:05 Pulse Oximetry 100 07/03/25 09:05 Oxygen Delivery Room Air 07/03/25 06:49 Medical Decision Making Vital Signs Vital Signs: Vital Signs Temperature 97.6 F 07/03/25 06:49 Pulse Rate 82 07/03/25 06:49 Respiratory Rate 20 07/03/25 06:49 Blood Pressure 151/66 H 07/03/25 06:49 Pulse Oximetry 99 07/03/25 06:49 Oxygen Delivery Room Air 07/03/25 06:49 Temperature 97.6 F 07/03/25 06:49 Pulse Rate 69 07/03/25 09:05 Respiratory Rate 15 07/03/25 09:05 Blood Pressure 141/89 H 07/03/25 09:05 Pulse Oximetry 100 07/03/25 09:05 Oxygen Delivery Room Air 07/03/25 06:49 Lab Data 07/03/25 07:50 07/03/25 07:50 Labs: Lab Results 07/03/25 Range/Units 07:50 WBC 11.8 H (4.5-10.0) K/mm3 RBC 4.55 (4.2-5.4) M/mm3 Hgb 14.5 (12.0-15.0) g/dL Hct 42.0 (37.0-47.0) % MCV 92.3 (80-100) fl MCH 31.9 (26-34) pg MCHC 34.5 (32-36) g/dl RDW 13.0 (11.5-14.5) % Plt Count 211 (150-375) k/mm3 MPV 10.1 (7.4-10.4) fl Immature Gran % (Auto) 0.3 (0-0.5) % Neut % (Auto) 59.6 (45.5-73.1) % Lymph % (Auto) 24.0 (18.3-44.2) % [place] % (Auto) 13.5 H (2.6-8.5) % Eos % (Auto) 2.1 (0-4.4) % Baso % (Auto) 0.5 (0.2-1.2) % Lymph # (Auto) 2.83 (0.9-3.2) K/mm3 [place] # (Auto) 1.6 H (0.1-0.6) K/mm3 Eos # (Auto) 0.3 (0-0.3) K/mm3 Baso # (Auto) 0.1 (0.0-0.1) K/mm3 Abs Immat Gran (auto) 0.04 H (0.00-0.031) K/mm3 Absolute Neuts (auto) 7.0 H (1.3-6.7) K/mm3 Absolute Nucleated RBC 0.000 (0.0-0.012) K/mm3 Nucleated RBC % 0.0 (0.0-0.2) % Sodium 137 (137-145) mmol/L Potassium 3.4 (3.4-5.0) mmol/L Chloride 109 H (98-107) mmol/L Carbon Dioxide 23 (22-30) mmol/L Anion Gap 5 (4-12) mmol/L BUN 17 (7-17) mg/dL Creatinine 0.53 L (0.7-1.0) mg/dL Estim Creat Clear Calc 83 ml/min Estimated GFR > 60 (59 - ) Glucose 101 (65-110) mg/dL Calcium 8.5 (8.4-10.2) mg/dL Total Bilirubin 0.6 (0.2-1.3) mg/dL AST 52 H (14-36) U/L ALT 26 (6-35) U/L Alkaline Phosphatase 106 (38-126) U/L Total Protein 7.2 (6.3-8.2) g/dL Albumin 3.7 (3.5-5.1) g/dL Lipase 508 H (23-300) U/L Influenza A (RT-PCR) Negative (Negative) Influenza B (RT-PCR) Negative (Negative) RSV (RT-PCR) Negative (Negative) SARS-CoV-2 RNA (RT-PCR) Negative (Negative) Discharge Plan Discharge Clinical Impression: Toothache, URI, acute Patient Disposition: Home Condition: Stable Instructions: Antibiotic Form, Viral Syndrome (ED), Toothache (ED) Additional Instructions: Return ER if she cannot breathe, he cannot swallow, you develop chest pain with shortness of breath, or you have additional concerns. Patient Language: Kenyan Prescriptions: New amoxicillin-pot clavulanate 875-125 mg tablet 1 tablet PO Q12H Qty: 14 0RF No Action propranolol 60 mg capsule,extended release 24 hr 60 mg PO DAILY methimazole 5 mg tablet 5 mg PO BID methocarbamol 500 mg tablet 500 mg PO Q6H PRN (Reason: muscle pain/spasm) Qty: 30 0RF ibuprofen 600 mg tablet 600 mg PO Q6H PRN (Reason: pain) Qty: 30 0RF Follow-up/Referrals: Roman,MD Deshawn [Primary Care Provider, Unknown] - 1 Week
[2025-07-03 09:40] VITALS: BP 136/77; PULSE 72; RESP 17; O2SAT 98
== END 2025-07-03 09:42 | disposition home or self-care (01) ==
PROVIDERS: Emergency Provider Emergency Medicine; PCP Family Medicine
DX: K08.89 Other specified disorders of teeth and supporting structures (principal); J06.9 Acute upper respiratory infection, unspecified; Z20.822 Contact with and (suspected) exposure to COVID-19; F41.9 Anxiety disorder, unspecified; F32.A Depression, unspecified; K21.9 Gastro-esophageal reflux disease without esophagitis; E05.00 Thyrotoxicosis with diffuse goiter without thyrotoxic crisis or storm; I10 Essential (primary) hypertension; Z86.711 Personal history of pulmonary embolism
CPT/HCPCS: 36415; 80053; 83690; 85025; 87637; 96361; 96374; 99284; J2405; J7030